=== PATIENT | female | born 1985 | race Caucasian/White ===

== ENCOUNTER → 2017-09-14 | Outpatient (CLI) | payer BC ==
[~2017-09-14] MED LIST: FAMO20TA11 PO; PRENTAB26 PO; RANI150T3 PO
== END | disposition home or self-care (01) ==
LOC: C.PAPS 11:22
PROVIDERS: ATTEND Physician Assistant
DX: Z01.419 Encounter for gynecological examination (general) (routine) without abnormal findings (principal)

== ENCOUNTER → 2018-02-17 | Outpatient (CLI) | payer OTHER ==
--- NOTE | 2018-02-17 15:04 | MAMMOGRAPHY REPORT ---
UNILATERAL LEFT DIGITAL DIAGNOSTIC MAMMOGRAM TOMOSYNTHESIS WITH CAD AND TARGETED LEFT ULTRASOUND: 01/21 CLINICAL HISTORY: The patient reports that a few weeks ago she noticed an area of tingling in her lef t breast, and on self-breast exam of this region noticed an area of thickening. She denies any pain, skin changes, or other complaints. TECHNIQUE: Breast tomosynthesis in addition to standard 2D mammography was performed. Current study was also evaluated with a Computer Aided Detection (CAD) system. Left CC and MLO 2D and tomosynthesi s images and spot magnification left CC and ML views were obtained. COMPARISON: No prior exams were available for comparison. BREAST COMPOSITION: The tissue of the left breast is extremely dense, which lowers the sensitivity o f mammography. FINDINGS: A triangle marker stewart the site of the palpable thickening and tingling pointed out by the patient in the left lateral breast at approximately 2:00. There are no suspicious masses or other s uspicious abnormality seen in this region. A few loosely grouped punctate benign-appearing calcifica tions are seen within the left breast at approximately 12-12:30, with two adjacent coarse benign rim calcifications also seen within the left superior breast. There are no suspicious masses, calcificat ions, or areas of architectural distortion noted within the left breast. Targeted ultrasound was performed of the area of the palpable lump pointed out by the patient, in the left upper outer quadrant periareolar region as well as left subareolar breast. Sonographically nor mal tissue is seen in these regions, without evidence of a mass or other suspicious sonographic abnor mality. Incidentally noted were a few small anechoic benign simple cysts in the left 12:00 periareol ar breast, the largest measuring approximately 5 mm. IMPRESSION: ACR BI-RADS CATEGORY 2: BENIGN, TARGETED ULTRASOUND ACR BI-RADS CATEGORY 2: BENIGN No suspicious mammographic or sonographic abnormality at the site of the thickening and tingling in t he left upper outer periareolar and subareolar breast pointed out by the patient. There is no mammog raphic or targeted sonographic evidence of malignancy. Recommend clinical follow-up for the left ambrosio ast palpable thickening and tingling; any decision to biopsy should be based on clinical grounds. If the palpable finding is new or otherwise clinically suspicious, then further evaluation with fine-ne edle aspiration by the pathology department could be performed. The patient has been verbally notified of the results. Approximately 10% of breast cancers are not detected with mammography. A negative mammographic report should not delay biopsy if a clinically suggestive mass is present. Becky Pearson M.D. ah/:02/17/2018 10:17:04 Airline Manager: Clarita Dudley, [facility] letter sent: Normal 1/2 BI-RADS Code: ACR BI-RADS Category 2: Benign Ultrasound BI-RADS: ACR BI-RADS Category 2: Benign
== END | disposition home or self-care (01) ==
LOC: C.MAMM 08:49
PROVIDERS: ATTEND Physician Assistant
DX: N64.59 Other signs and symptoms in breast (principal)